=== PATIENT | female | born 1960 | race Hispanic/Latino ===

== ENCOUNTER 2021-04-20 17:56 | Emergency (ER) | payer SELFPAY ==
[2021-04-20 17:58] VITALS: BP 142/88; PULSE 92; RESP 16; TEMP 36; O2SAT 97
[2021-04-20 18:00] VITALS: O2SAT 97
--- NOTE | 2021-04-20 18:19 | CT_ITS ---
STUDY: CT BRAIN WITHOUT CONTRAST REASON FOR EXAM: Female, 60 years old. HEADACHE trauma abrasion to bridge of nose TECHNIQUE: Transaxial CT imaging of the brain was performed without administration of intravenous contrast material. Individualized dose optimization techniques were used for this CT. COMPARISON: None FINDINGS: Normal calvarium. Soft tissue swelling of the nose. There is a nasal bone fracture. Normal size ventricles and extra-axial spaces for the patient''s age. Normal white matter tracts of the cerebral hemispheres. Normal basal ganglia and thalami. Normal brainstem. Normal cerebellum. There is no intracranial hemorrhage. There are no findings of an acute ischemic infarction. There is sinus disease. ASPECTS 10 CT/Brain/Head without Contrast IMPRESSION: There are no acute intracranial findings. Soft tissue swelling of the nose. There is a nasal bone fracture. Electronically Signed: Mateus Alvarado MD at 18:49 EST ,
--- NOTE | 2021-04-20 18:19 | CT_ITS ---
EXAM: CT MAXILLOFACIAL WITHOUT INTRAVENOUS CONTRAST CLINICAL INDICATION: trauma abrasion to bridge of nose TECHNIQUE: Helically acquired images were obtained of the face without intravenous contrast. This CT exam was performed using one or more of the following dose reduction techniques: automated exposure control, adjustment of the mA and/or kV according to patient size, and/or use of iterative reconstruction technique. This report was created using [employer] report generation technology. COMPARISON: None. FINDINGS: BONES/JOINTS: See below. SOFT TISSUES: Soft tissue swelling of the nose. There is a nasal bone fracture. No discrete fluid collections. ORBITS: Unremarkable. Both globes are unremarkable. Extraocular muscles are normal. Retrobulbar fat appears unremarkable. SINUSES: Unremarkable as visualized. Clear. MASTOID AIR CELLS: Unremarkable as visualized. Clear. DENTAL: No acute findings. No periodontal osseous erosion. CT/Sinus/Facial Bone IMPRESSION: Soft tissue swelling of the nose. There is a nasal bone fracture. Electronically Signed: Mateus Alvarado MD at 18:48 EST ,
--- NOTE | 2021-04-20 18:19 | CT_ITS ---
EXAM: CT SPINE - CERVICAL WITHOUT IV REASON FOR EXAM: Female, 60 years old. NECK PAIN traumaabrasion to bridge of nose Individualized dose optimization techniques were used for this CT. TECHNIQUE: Multiplanar images were obtained of the cervical spine. IV contrast was not utilized. COMPARISON: None. FINDINGS: The vertebral bodies do maintain their height. The odontoid process is intact. There is no anterolisthesis or fracture. No pre-vertebral soft tissue swelling is seen. The intravertebral disc height is lost. There are scattered lymph nodes in the neck. There are degenerative changes of the osseous structures. There is bilateral facet arthropathy. There are scattered levels of foraminal stenosis. There are vascular calcifications. There is mild straightening of the normal cervical lordosis. This can suggest neck strain. CT/Spine Cervical without Contras IMPRESSION: Degenerative changes of the cervical spine. There is mild straightening of the normal cervical lordosis. This can suggest neck strain. Electronically Signed: Mateus Alvarado MD at 18:47 EST ,
--- NOTE | 2021-04-20 18:20 | ED.VIS.FALL ---
HPI HPI - Fall History of Present Illness Chief Complaint: Fall Informant: patient Narrative Narrative: Presents by private vehicle fall going down her basement steps. Denies loss of consciousness. She stumbled falling injuring her nose with nosebleed. Pain in the injury region. No anticoagulation medicines. Pain in the right wrist. She is right-hand dominant. No pain in the neck back or lower extremities. Patient denies taking any daily medicines she drove herself here. No chest pains or shortness of breath. Occurred around 5:30 PM. She called her . She drove herself here. PFSH PFSH Medical History no medical history Home Medications NK 04/20/21 [History Last Taken Unknown] Allergy/AdvReac Type Severity Reaction Status Date / Time No Known Allergies Allergy Verified 04/20/21 17:59 Surgical History no surgical history Social History Smoking Status: Never smoker ROS ROS ED Constitutional Constitutional ED: Denies chills, fever(s) or sweats Eyes Eyes: Denies change in vision ENT ENT ED: Reports other Details: Facial pain, nosebleed ; Denies dysphagia or sore throat Cardiovascular Cardiovascular: Denies chest pain, leg edema, palpitations or racing heartbeat Respiratory/Chest Respiratory/Chest: Denies cough, dyspnea or dyspnea on exertion Gastrointestinal Gastrointestinal: Denies abdominal pain, diarrhea, nausea or vomiting Genitourinary Genitourinary ED: Denies dysuria, hematuria or urinary frequency Musculoskeletal Musculoskeletal: Denies back pain, extremity pain or neck pain Integumentary Denies rash or wounds Neurologic Neurologic: Denies headache(s), paresthesias or weakness EXAM Physical Exam Const Vital Signs: 04/20/21 17:58 04/20/21 18:00 04/20/21 19:38 Temperature 96.8 F L Temperature Source Temporal Pulse Rate 92 74 Respiratory Rate 16 17 Respiratory Effort Normal Non-Labored Respiratory Depth Normal Respiratory Pattern Normal Blood Pressure 142/88 H Blood Pressure Mean 106 Pulse Ox 97 97 98 Oxygen Delivery Method Room Air Room Air Positive well nourished and well developed Constitutional Narrative: GCS 15. General Appearance ED: well developed and NAD HEENT Reports moist mucous membranes HEENT Narrative: Swelling across the nasal bridge, there is blood in the bilateral nares, no active bleeding. No lips lacerations no dental loosening. No trismus. normocephalic Eyes PERRL, EOMs intact bilaterally and conjunctivae normal General Eye ED: Yes normal appearance of both eyes Neck no lymphadenopathy and supple General: Negative for tenderness Chest Wall Chest: Negative for tenderness Resp normal respiratory effort and normal air movement Effort and Inspection: symmetric chest movement; Negative for respiratory distress Cardio regular rate, regular rhythm and no murmurs Peripheral Pulses: pulses 2+ throughout GI normal to inspection, nondistended, normoactive bowel sounds and non-tender Palpation: Negative for guarding or rebound tenderness present Back/Spine no CVA tenderness and no thoracic nor lumbar tenderness Extremity Extremity Narrative: Right upper extremity: No shoulder or elbow tenderness there is tender palpation distal ulna and radius with no deformities. No hand tenderness. Skin intact. Neuro vas intact. Left upper extremity: Active full range of motion with no bony tenderness, small abrasion dorsal aspect of the hand distal third metatarsal. No deformities. No active bleeding. Lower extremities: Negative logroll, nontender neuro vas intact distally. General Extremety ED: Negative for edema or tenderness General Extremity: Negative for edema Neuro oriented x3 and no sensory deficits noted Sensorium / Orientation: awake and alert Skin no rashes or lesions noted and no wounds MDM MDM MDM Narrative Medical decision making narrative: Patient declined any medications ice was placed on the nasal bridge. Clinical nasal bone fracture with bleeding. However with falls down steps trauma scans head face and neck was ordered notes nasal bone fracture no other acute findings. Right wrist x-ray reviewed by myself and read by radiology shows no acute process wrist splint was provided. Head injury precautions discussed with patient she will use Tylenol at home. She is given follow-up with ENT due to her nasal bone fracture for outpatient evaluation. All questions were answered. Radiography Diagnostic Testing: Clinical Impression(s) from Imaging Studies Brain CT 04/20/21 18:19 IMPRESSION: There are no acute intracranial findings. Soft tissue swelling of the nose. There is a nasal bone fracture. Electronically Signed: Mateus Alvarado MD at 18:49 EST Reading Location ID and State: [facility] / [place] , Service support , Cervical Spine CT 04/20/21 18:19 IMPRESSION: Degenerative changes of the cervical spine. There is mild straightening of the normal cervical lordosis. This can suggest neck strain. Electronically Signed: Mateus Alvarado MD at 18:47 EST , Facial/Sinus 04/20/21 18:19 IMPRESSION: Soft tissue swelling of the nose. There is a nasal bone fracture. Electronically Signed: Mateus Alvarado MD at 18:48 EST , Wrist X-Ray 04/20/21 18:49 IMPRESSION: There are no acute findings of the wrist. Electronically Signed: Mateus Alvarado MD at 19:13 EST , Discharge Plan Triage Chief Complaint: Fall ED Provider: Lenin [facility]a Dx/Rx/DC Orders Clinical Impression: Contusion of face, Closed fracture nasal bone, Right wrist sprain, Fall Instructions: ED Facial Contusion, ED Nose Fracture, with X-Ray, ED Wrist Sprain Prescriptions: No Action NK RF: 0 Primary Care Provider: Care Physician,No Primary Referrals: Kenny Chacon MD [STAFF PHYSICIAN] - 1-2 Weeks Care Physician,No Primary [Primary Care Provider] - Activity Restrictions/Additional Instructions: CT scan head face and neck notes fracture nasal bones with soft tissue swelling. Right wrist x-ray negative for fracture. Use Tylenol as needed. Disposition Disposition: Home, Self Care Discharge Date/Time: 04/20/21 19:41
--- NOTE | 2021-04-20 18:49 | RAD_ITS ---
STUDY: XR Wrist Min 3 Views REASON FOR EXAM: Female, 60 years old. PAIN fall with right wrist pain TECHNIQUE: XR Wrist Min 3 Views COMPARISON: None FINDINGS: There are no acute findings of the visualized distal radius and ulna. There are no acute findings of the radiocarpal articulation. Normal distal radioulnar articulation. Normal carpal bones. Normal carpal articulations. There are no acute findings of the carpometacarpal articulation of the thumb. Normal second through fifth carpometacarpal articulations. There are no acute findings of the visualized metacarpal bones. The soft tissue structures are unremarkable. RAD/Wrist min 3 Views IMPRESSION: There are no acute findings of the wrist. Electronically Signed: Mateus Alvarado MD at 19:13 EST ,
[2021-04-20 19:38] VITALS: PULSE 74; RESP 17; O2SAT 98
== END 2021-04-20 19:41 | disposition home or self-care (01) ==
PROVIDERS: Emergency Provider Emergency Medicine; Visit Provider Emergency Medicine
DX: S00.83XA Contusion of other part of head, initial encounter (principal); S02.2XXA Fracture of nasal bones, initial encounter for closed fracture; S63.501A Unspecified sprain of right wrist, initial encounter; W10.9XXA Fall (on) (from) unspecified stairs and steps, initial encounter
CPT/HCPCS: 70450; 70486; 72125; 73110; 99283